=== PATIENT | male | born 1980 | race Asian ===

== ENCOUNTER 2018-07-01 19:30 | Emergency (ER) | payer SELFPAY ==
[~2018-07-01] VITALS: Ht 167.6 cm; Wt 63.5 kg
[2018-07-01] MEDS ORDERED: Ketorolac 30mg Inj IV ONE (20:00)
[2018-07-01] MEDS ORDERED: Vancomycin 1 GM in D5W 275 ML IVPB ONE (20:00)
[2018-07-01 20:25] VITALS: BP 134/89
--- NOTE | 2018-07-01 20:44 | Emergency Room Report ---
History of Present Illness General Chief Complaint: Male Urogenital Problems Source: Patient Present Illness HPI Patient was sent by his surgeon to receive a dose of IV vancomycin. [facility] has pen[facility] swelling in tenderness there. He denies any fevers or chills. The pain is a states to 9/10 and more in the suprapubic area. Denies any dysuria. There is an area where the sutures on the shaft dehisced. The patient's been seen by his private physician and will be receiving oral antibiotics however his private physician wanted to get a dose of IV vancomycin. No NVD, change in bowels. No chest pain, cough, dyspnea. No calf pain or swelling. No back pain. Alleged used cocaine over the weekend. Allergies: Coded Allergies: No Known Allergies (Unverified , 07/01/18) Patient History Past Medical History: see triage record Past Surgical History: other - penile inhancement Social History: Reports: drug use Social History Narrative with girlfriend Reviewed Nursing Documentation: PMH: Agreed; PSxH: Agreed Nursing Documentation-PMH Past Medical History: No Stated History Review of Systems Constitutional: Denies: fever Gastrointestinal: Denies: constipation, nausea, vomiting Genitourinary: Reports: see HPI Skin: Reports: see HPI Hematologic/Lymphatic: Denies: blood clots, easy bleeding Physical Exam Vital Signs Date Time Temp Pulse Resp B/P (MAP) Pulse Ox O2 Delivery O2 Flow Rate FiO2 07/01/18 19:44 98.0 84 15 134/89 98 Room Air 98.1 Sp02 EP Interpretation: reviewed, normal General Appearance: well appearing, no apparent distress, GCS 15, non-toxic Head: normocephalic, atraumatic Eyes: bilateral eye normal inspection, bilateral eye PERRL ENT: hearing grossly normal, normal voice Neck: full range of motion, supple Respiratory: no respiratory distress, speaking full sentences Genitourinary: other - uncircumcised, min erythroderma, some tumescence, suprapubic tenderness. Area of wound dehiscience distal shaft Musculoskeletal: no calf tenderness Neurologic: alert, normal gait, grossly normal Psychiatric: mood/affect normal Skin: other - see genital exam Medical Decision Making Diagnostic Impression: Primary Impression: Post-operative infection Qualified Codes: T81.4XXA - Infection following a procedure, initial encounter ER Course Patient presents with pain after penile enlargement procedure. Differential includes infection, clot amongst others. He's been seen by his surgeon feels that he needs to have IV antibiotics. Evaluation will be with a CBC and CMP and urinalysis. He will receive a dose of IV vancomycin per the request of the surgeon. Also he'll be treated for pain. Labs with normal CBC and CMP. UA clear. Received Vanco without problems. Pain improved. Surgeon here with patient. Plan for hyperbaric oxygen treatment and continued oral antibiotics. Patient stable for outpatient observation and treatment. Labs Test 07/01/18 20:24 White Blood Count 9.6 K/UL (4.8-10.8) Red Blood Count 5.27 M/UL (4.70-6.10) Hemoglobin 15.7 G/DL (14.2-18.0) Hematocrit 47.7 % (42.0-52.0) Mean Corpuscular Volume 90 FL (80-99) Mean Corpuscular Hemoglobin 29.7 PG (27.0-31.0) Mean Corpuscular Hemoglobin Concent 32.8 G/DL (32.0-36.0) Red Cell Distribution Width 11.3 % (11.6-14.8) Platelet Count 218 K/UL (150-450) Mean Platelet Volume 7.1 FL (6.5-10.1) Neutrophils (%) (Auto) 66.3 % (45.0-75.0) Lymphocytes (%) (Auto) 20.7 % (20.0-45.0) Monocytes (%) (Auto) 9.5 % (1.0-10.0) Eosinophils (%) (Auto) 2.4 % (0.0-3.0) Basophils (%) (Auto) 1.0 % (0.0-2.0) Urine Color Pale yellow Urine Appearance Clear Urine pH 7 (4.5-8.0) Urine Specific [place] 1.010 (1.005-1.035) Urine Protein Negative (NEGATIVE) Urine Glucose (UA) Negative (NEGATIVE) Urine Ketones Negative (NEGATIVE) Urine Blood 3+ (NEGATIVE) Urine Nitrite Negative (NEGATIVE) Urine Bilirubin Negative (NEGATIVE) Urine Urobilinogen Normal MG/DL (0.0-1.0) Urine Leukocyte Esterase Negative (NEGATIVE) Urine RBC 2-4 /HPF (0 - 0) Urine WBC 0-2 /HPF (0 - 0) Urine Squamous Epithelial Cells None /LPF (NONE/OCC) Urine Bacteria None /HPF (NONE) Sodium Level 138 MMOL/L (136-145) Potassium Level 3.7 MMOL/L (3.5-5.1) Chloride Level 99 MMOL/L (98-107) Carbon Dioxide Level 32 MMOL/L (21-32) Anion Gap 8 mmol/L (5-15) Blood Urea Nitrogen 8 mg/dL (7-18) Creatinine 1.0 MG/DL (0.55-1.30) Estimat Glomerular Filtration Rate > 60 mL/min (>60) Glucose Level 100 MG/DL (74-106) Calcium Level 9.5 MG/DL (8.5-10.1) Total Bilirubin 0.4 MG/DL (0.2-1.0) Aspartate Amino Transf (AST/SGOT) 16 U/L (15-37) Alanine Aminotransferase (ALT/SGPT) 26 U/L (12-78) Alkaline Phosphatase 106 U/L (46-116) Total Protein 8.9 G/DL (6.4-8.2) Albumin 3.8 G/DL (3.4-5.0) Globulin 5.1 g/dL Albumin/Globulin Ratio 0.7 (1.0-2.7) Last Vital Signs Date Time Temp Pulse Resp B/P (MAP) Pulse Ox O2 Delivery O2 Flow Rate FiO2 07/01/18 22:05 98.3 77 14 128/80 99 Room Air 208.9 Status: improved Disposition: HOME, SELF-CARE Condition: Improved Scripts Ibuprofen* (MOTRIN*) 600 Mg Tablet 600 MG ORAL Q6H PRN for For Pain, #20 TAB Prov: Clive Delarosa M.D. 07/01/18 Referrals: Donte Loera MD (PCP) Clive Delarosa M.D. Jul 01, 2018 20:44
[2018-07-01 20:51] LABS: APPEARANCE,URINE CLEAR; BILIRUBIN, URINE NEGATIVE (NEGATIVE); COLOR,URINE PALE YELLOW; GLUCOSE, URINE (UA) NEGATIVE (NEGATIVE); KETONES,URINE NEGATIVE (NEGATIVE); LEUKOCYTE ESTERASE ,URINE NEGATIVE (NEGATIVE); NITRITE,URINE NEGATIVE (NEGATIVE); PH,URINE 7 (4.5-8.0); PROTEIN,URINE NEGATIVE (NEGATIVE); UROBILINOGEN,URINE NORMAL MG/DL (0.0-1.0)
[2018-07-01 20:57] LABS: EOSINOPHILS % (AUTO) 2.4 % (0.0-3.0); HEMATOCRIT 47.7 % (42.0-52.0); HEMOGLOBIN 15.7 G/DL (14.2-18.0); LYMPHOCYTES % (AUTO) 20.7 % (20.0-45.0); MEAN CORPUSCULAR VOLUME 90 FL (80-99); MONOCYTES % (AUTO) 9.5 % (1.0-10.0); NEUTROPHILS % (AUTO) 66.3 % (45.0-75.0); PLATELET COUNT 218 K/UL (150-450); RED BLOOD COUNT 5.27 M/UL (4.70-6.10); RED CELL DISTRIBUTION WIDTH 11.3 % (11.6-14.8); WHITE BLOOD COUNT 9.6 K/UL (4.8-10.8)
[2018-07-01 21:07] LABS: ANION GAP 8 mmol/L (5-15); BLOOD UREA NITROGEN 8 mg/dL (7-18); CALCIUM 9.5 MG/DL (8.5-10.1); CARBON DIOXIDE 32 MMOL/L (21-32); CHLORIDE 99 MMOL/L (98-107); POTASSIUM 3.7 MMOL/L (3.5-5.1); SODIUM 138 MMOL/L (136-145)
[2018-07-01 21:12] LABS: ALANINE AMINOTRANSFERASE 26 U/L (12-78); ALBUMIN 3.8 G/DL (3.4-5.0); ALBUMIN/GLOBULIN RATIO 0.7 (1.0-2.7); ALKALINE PHOSPHATASE 106 U/L (46-116); ASPARTATE AMINO TRANSFERASE 16 U/L (15-37); BILIRUBIN,TOTAL 0.4 MG/DL (0.2-1.0)
[2018-07-01] MEDS ORDERED: IBUPROFEN600 MG ORAL (21:43)
[2018-07-01 22:05] VITALS: BP 128/80
--- NOTE | 2018-07-04 18:34 | Pre-Procedure Note/Attestation ---
Pre-Procedure Note/Attestation Complete Prior to Procedure Planned Procedure: bilateral Procedure Narrative: bstatus post alloderm to penis for male enhancement had sex the day sutures were removed now has exposed alloderm betadine placedin the foreskin Indications for Procedure Pre-Operative Diagnosis: exposed alloderm Attestation I attest that I discussed the nature of the procedure; its benefits; risks and complications; and alternatives (and the risks and benefits of such alternatives ), prior to the procedure, with the patient (or the patient's legal maintenance representative). I attest that, if there was a reasonable possibility of needing a blood transfusion, the patient (or the patient's legal maintenance representative) was given the [place] Department [employer] standardized written summary, pursuant to the [place] Blood Safety Act ([place] Health and Safety Code # 1645, as amended). I attest that I re-evaluated the patient just prior to the surgery and that there has been no change in the patient's H&P, except as documented below: Donte Loera MD Jul 04, 2018 18:34
== END 2018-07-01 22:05 | disposition home or self-care (01) ==
LOC: EMR 20:00
DX: T81.4XXA Infection following a procedure, initial encounter (principal); N48.29 Other inflammatory disorders of penis
CPT/HCPCS: 36415; 80053; 81003; 85025; 96365; 96375; 99284; J1885; J3370